=== PATIENT | male | born 1955 | race Asian ===

== ENCOUNTER 2020-03-07 20:51 | Inpatient (IN) | payer OTHER ==
[~2020-03-07] VITALS: Ht 162.6 cm; Wt 75.5 kg
[2020-03-07] MEDS ORDERED: FLUT16H NASAL (20:57)
[2020-03-07] MEDS ORDERED: LOSA25TA71 PO (20:57)
[2020-03-07] MEDS ORDERED: ATOR10TA84 PO (20:57)
[2020-03-07] MEDS ORDERED: BENZ200C53 PO (20:58)
[2020-03-07 22:20] LABS: BARBITURATE SCREEN, URINE NEGATIVE (NEGATIVE); BENZODIAZEPINES SCREEN,URINE NEGATIVE (NEGATIVE); COCAINE SCREEN,URINE NEGATIVE (NEGATIVE); METHADONE SCREEN, URINE NEGATIVE (NEGATIVE); OPIATE SCREEN,URINE NEGATIVE (NEGATIVE)
[2020-03-07 22:26] LABS: BASOPHILS % (AUTO) 0.3 % (0.0-2.0); EOSINOPHILS % (AUTO) 0 % (1.0-6.0); HEMOGLOBIN 14.6 g/dL (13.5-17.5); LYMPHOCYTES # (AUTO) 0.7 K/uL (1.0-4.8); LYMPHOCYTES % (AUTO) 5.3 % (22.0-44.0); MEAN CORPUSCULAR HEMOGLOBIN 28.1 pg (26.0-34.0); MEAN CORPUSCULAR HGB CONC 31.8 G/dL (31.0-37.0); MEAN CORPUSCULAR VOLUME 88 fL (80-100); MONOCYTES # (AUTO) 1.5 K/uL (0.1-1.0); MONOCYTES % (AUTO) 11.6 % (2.0-9.0); NEUTROPHILS # (AUTO) 10.6 K/uL (1.8-7.7); NEUTROPHILS % (AUTO) 82.8 % (40.0-70.0); PLATELET COUNT (AUTO) 103 K/uL (150-450); RED BLOOD CELL COUNT(AUTO) 5.21 MIL/uL (4.50-5.90); RED CELL DISTRIBUTION WIDTH 15.3 % (11.5-14.5)
[2020-03-07 22:35] LABS: ANION GAP 15 mmol/L (8-16); CALCIUM, TOTAL 9.1 mg/dL (8.8-10.5); CARBON DIOXIDE 19 mmol/L (22-29); CHLORIDE 100 mmol/L (98-107); CREATININE 2.11 mg/dL (0.60-1.30); GLOMERULAR FILTR. RATE CALC 32 mL/min (>60); GLUCOSE,RANDOM 136 mg/dL (70-110); POTASSIUM 4.4 mmol/L (3.5-5.1); SODIUM SERUM 134 mmol/L (136-145); UREA NITROGEN, BLOOD 42 mg/dL (7-18)
[2020-03-07 22:38] LABS: AMPHET/METH SCREEN,URINE NEGATIVE (NEGATIVE); CANNABINOID SCREEN,URINE NEGATIVE (NEGATIVE)
[2020-03-07 22:39] LABS: PHENCYCLIDINE SCREEN,URINE NEGATIVE (NEGATIVE)
[2020-03-07 22:41] LABS: ALANINE AMINOTRANSFERASE 759 U/L (12-78); ALBUMIN 3.6 g/dL (3.4-5.0); ALKALINE PHOSPHATASE 247 U/L (46-116); ASPARTATE AMINOTRANSFERASE 516 U/L (15-37); BILIRUBIN,TOTAL 3.4 mg/dL (0.1-1.0); TOTAL PROTEIN, SERUM 6.8 g/dL (6.4-8.2)
[2020-03-07] MEDS ORDERED: LORazepam 1 MG TABLET PO ONE (23:15)
[2020-03-08] MEDS ORDERED: SODIUM CHLORIDE 0.9% 1,000 ML IV ONE (03:30)
[2020-03-08 05:05] LABS: LIPASE 417 U/L (73-393)
[2020-03-08] MEDS ORDERED: 0.9% SODIUM CHLORIDE 10 ML SYRINGE IVP PRN (05:30)
[2020-03-08 08:13] VITALS: BP 110/76
[2020-03-08] MEDS: HEPARIN SODIUM,PORCINE 5,000 UNITS/ML VIAL SQ SCH ×2 (08:22→16:00)
[2020-03-08] MEDS: DOCUSATE SODIUM 100 MG CAPSULE PO SCH ×2 (08:24→20:53)
[2020-03-08 09:47] LABS: ALBUMIN 3.2 g/dL (3.4-5.0); BILIRUBIN,TOTAL 2.7 mg/dL (0.1-1.0); CALCIUM, TOTAL 8.5 mg/dL (8.8-10.5); CREATININE 1.8 mg/dL (0.60-1.30); POTASSIUM 4.3 mmol/L (3.5-5.1); TOTAL PROTEIN, SERUM 6.1 g/dL (6.4-8.2)
[2020-03-08 09:48] LABS: INR 1.6 (0.9-1.1); PROTHROMBIN TIME 16.2 SEC (9.4-11.6)
[2020-03-08 11:24] VITALS: BP 99/74
[2020-03-08 15:42] VITALS: BP 108/84
[2020-03-08 20:35] VITALS: BP 116/69
[2020-03-08] MEDS: ACETAMINOPHEN 325 MG TABLET PO PRN (22:06)
[2020-03-09] MEDS: HEPARIN SODIUM,PORCINE 5,000 UNITS/ML VIAL SQ SCH
[2020-03-09 04:12] VITALS: BP 100/75
[2020-03-09 07:48] VITALS: BP 113/64
[2020-03-09] MEDS: DOCUSATE SODIUM 100 MG CAPSULE PO SCH ×2 (09:00→21:00)
[2020-03-09] MEDS ORDERED: SODIUM CHLORIDE 0.9% 1,000 ML IV ONE (10:00)
[2020-03-09] MEDS: LACTULOSE 20 GM/30 ML SOLUTION UDCUP PO SCH ×2 (12:31→20:52)
[2020-03-09] MEDS: VITAMIN B COMP/VIT C/FOLIC ACID CAPSULE PO SCH (12:32)
[2020-03-09 14:53] VITALS: BP 120/59
[2020-03-09] MEDS: FUROSEMIDE 40 MG/4 ML VIAL IVP SCH ×2 (16:15→20:52)
[2020-03-09] MEDS: CARVEDILOL 3.125 MG TABLET PO SCH ×2 (16:15→20:52)
[2020-03-09 20:20] VITALS: BP 118/74
[2020-03-09] MEDS: ACETAMINOPHEN 325 MG TABLET PO PRN (21:15)
[2020-03-10 08:25] LABS: HEMATOCRIT 44.9 % (41-53); HEMOGLOBIN 14.5 g/dL (13.5-17.5); MEAN CORPUSCULAR HEMOGLOBIN 28.4 pg (26.0-34.0); MEAN CORPUSCULAR HGB CONC 32.3 G/dL (31.0-37.0); MEAN CORPUSCULAR VOLUME 88 fL (80-100); PLATELET COUNT (AUTO) 86 K/uL (150-450); RED CELL DISTRIBUTION WIDTH 15.6 % (11.5-14.5)
[2020-03-10] MEDS: FUROSEMIDE 40 MG/4 ML VIAL IVP SCH (08:30)
[2020-03-10] MEDS: CARVEDILOL 3.125 MG TABLET PO SCH (08:31)
[2020-03-10] MEDS: VITAMIN B COMP/VIT C/FOLIC ACID CAPSULE PO SCH (08:31)
[2020-03-10] MEDS: LACTULOSE 20 GM/30 ML SOLUTION UDCUP PO SCH ×2 (08:31→21:08)
[2020-03-10] MEDS: DOCUSATE SODIUM 100 MG CAPSULE PO SCH ×2 (08:39→21:08)
[2020-03-10 08:47] VITALS: BP 107/62
[2020-03-10 08:51] LABS: ALBUMIN 3.2 g/dL (3.4-5.0); BILIRUBIN,TOTAL 2.8 mg/dL (0.1-1.0); CREATININE 1.61 mg/dL (0.60-1.30); POTASSIUM 3.3 mmol/L (3.5-5.1); TOTAL PROTEIN, SERUM 6.2 g/dL (6.4-8.2)
[2020-03-10] MEDS ORDERED: LISINOPRIL 5 MG TABLET PO SCH (09:00)
[2020-03-10] MEDS ORDERED: POTASSIUM CHLORIDE 10% 40 MEQ/30 ML LIQUID UDCUP PO ONE (09:45)
[2020-03-10 11:44] VITALS: BP 91/69
[2020-03-10 12:17] LABS: BAND NEUTROPHILS % (MANUAL) 1 % (0-5); EOSINOPHILS % (MANUAL) 2 % (1-6); LYMPHOCYTES % (MANUAL) 11 % (22-44); MONOCYTES % (MANUAL) 9 % (2-9); SEGMENTED NEUTROPHILS % 77 % (40-70)
[2020-03-10 15:30] VITALS: BP 109/64
[2020-03-10 16:06] VITALS: BP 121/52
[2020-03-10 18:04] VITALS: BP 104/64
[2020-03-10] MEDS: ACETAMINOPHEN 325 MG TABLET PO PRN (21:08)
[2020-03-10 21:15] VITALS: BP 148/70
[2020-03-11 05:39] VITALS: BP 135/67
[2020-03-11] MEDS: ACETAMINOPHEN 325 MG TABLET PO PRN ×2 (05:46→21:28)
[2020-03-11] MEDS: FUROSEMIDE 40 MG/4 ML VIAL IVP SCH (08:50)
[2020-03-11] MEDS: ASPIRIN 81 MG CHEWABLE TABLET PO SCH (08:51)
[2020-03-11] MEDS: VITAMIN B COMP/VIT C/FOLIC ACID CAPSULE PO SCH (08:51)
[2020-03-11] MEDS: LACTULOSE 20 GM/30 ML SOLUTION UDCUP PO SCH ×3 (08:54→20:00)
[2020-03-11] MEDS: DOCUSATE SODIUM 100 MG CAPSULE PO SCH ×2 (08:54→20:01)
[2020-03-11 08:57] VITALS: BP 97/77
[2020-03-11 11:00] LABS: CALCIUM, TOTAL 8.2 mg/dL (8.8-10.5); CREATININE 1.82 mg/dL (0.60-1.30); POTASSIUM 4.1 mmol/L (3.5-5.1)
[2020-03-11 12:07] VITALS: BP 105/69
[2020-03-11] MEDS: BusPIRone HCL 5 MG TABLET PO SCH ×2 (15:38→20:00)
[2020-03-11 16:00] VITALS: BP 90/68
[2020-03-11 21:13] VITALS: BP 98/72
[2020-03-12] MEDS: ACETAMINOPHEN 325 MG TABLET PO PRN ×2 (01:54→11:41)
[2020-03-12 04:50] VITALS: BP 105/78
[2020-03-12 07:20] VITALS: BP 109/79
[2020-03-12 08:00] LABS: ALBUMIN 3.1 g/dL (3.4-5.0); BILIRUBIN,TOTAL 3.1 mg/dL (0.1-1.0); CALCIUM, TOTAL 8.3 mg/dL (8.8-10.5); CREATININE 1.65 mg/dL (0.60-1.30); POTASSIUM 4.3 mmol/L (3.5-5.1); TOTAL PROTEIN, SERUM 6.3 g/dL (6.4-8.2)
[2020-03-12] MEDS: DOCUSATE SODIUM 100 MG CAPSULE PO SCH ×2 (08:10→22:23)
[2020-03-12] MEDS: BusPIRone HCL 5 MG TABLET PO SCH ×2 (08:10→22:23)
[2020-03-12] MEDS: ASPIRIN 81 MG CHEWABLE TABLET PO SCH (08:10)
[2020-03-12] MEDS: FUROSEMIDE 40 MG/4 ML VIAL IVP SCH (08:10)
[2020-03-12] MEDS: VITAMIN B COMP/VIT C/FOLIC ACID CAPSULE PO SCH (08:10)
[2020-03-12] MEDS: LACTULOSE 20 GM/30 ML SOLUTION UDCUP PO SCH ×2 (08:11→22:23)
[2020-03-12 10:50] VITALS: BP 117/80
[2020-03-12] MEDS ORDERED: FURO40 PO (13:20)
[2020-03-12] MEDS ORDERED: ASPI-728 PO (13:21)
[2020-03-12] MEDS ORDERED: BUSP5TAB20 PO (13:22)
[2020-03-12] MEDS ORDERED: LACT30L PO (13:23)
[2020-03-12 15:19] VITALS: BP 108/61
[2020-03-12 19:47] VITALS: BP 95/59
[2020-03-12 23:54] VITALS: BP 108/78
[2020-03-13 05:16] VITALS: BP 115/71
[2020-03-13 07:50] VITALS: BP 109/78
[2020-03-13] MEDS: FUROSEMIDE 40 MG/4 ML VIAL IVP SCH (08:33)
[2020-03-13] MEDS: VITAMIN B COMP/VIT C/FOLIC ACID CAPSULE PO SCH (08:33)
[2020-03-13] MEDS: DOCUSATE SODIUM 100 MG CAPSULE PO SCH ×2 (08:34→20:59)
[2020-03-13] MEDS: LACTULOSE 20 GM/30 ML SOLUTION UDCUP PO SCH ×2 (08:34→20:59)
[2020-03-13] MEDS: ASPIRIN 81 MG CHEWABLE TABLET PO SCH (08:34)
[2020-03-13] MEDS: BusPIRone HCL 5 MG TABLET PO SCH ×2 (08:34→20:59)
[2020-03-13 11:15] VITALS: BP 130/81
[2020-03-13 15:30] VITALS: BP 102/68
[2020-03-13 19:24] LABS: ALBUMIN 3.2 g/dL (3.4-5.0); BILIRUBIN,TOTAL 2.5 mg/dL (0.1-1.0); CALCIUM, TOTAL 8.4 mg/dL (8.8-10.5); CREATININE 1.77 mg/dL (0.60-1.30); POTASSIUM 4.3 mmol/L (3.5-5.1); TOTAL PROTEIN, SERUM 6.4 g/dL (6.4-8.2)
[2020-03-13 19:59] VITALS: BP 112/81
[2020-03-13] MEDS ORDERED: TEMAZEPAM 15 MG CAPSULE PO SCH (21:00)
[2020-03-13 23:53] VITALS: BP 105/73
[2020-03-14] VITALS (10 sets, daily range): BP systolic 94–117; BP diastolic 70–80
[2020-03-14 06:50] LABS: BASOPHILS % (AUTO) 0.1 % (0.0-2.0); EOSINOPHILS % (AUTO) 1.4 % (1.0-6.0); HEMATOCRIT 44.2 % (41-53); HEMOGLOBIN 14.2 g/dL (13.5-17.5); LYMPHOCYTES % (AUTO) 10.1 % (22.0-44.0); MEAN CORPUSCULAR HEMOGLOBIN 28.4 pg (26.0-34.0); MEAN CORPUSCULAR HGB CONC 32.1 G/dL (31.0-37.0); MEAN CORPUSCULAR VOLUME 89 fL (80-100); MONOCYTES # (AUTO) 1.1 K/uL (0.1-1.0); MONOCYTES % (AUTO) 10.8 % (2.0-9.0); NEUTROPHILS # (AUTO) 7.8 K/uL (1.8-7.7); NEUTROPHILS % (AUTO) 77.6 % (40.0-70.0); RED BLOOD CELL COUNT(AUTO) 4.98 MIL/uL (4.50-5.90); RED CELL DISTRIBUTION WIDTH 16.5 % (11.5-14.5)
[2020-03-14 06:55] LABS: ALBUMIN 3.2 g/dL (3.4-5.0); BILIRUBIN,TOTAL 2.9 mg/dL (0.1-1.0); CALCIUM, TOTAL 8.6 mg/dL (8.8-10.5); CREATININE 1.58 mg/dL (0.60-1.30); POTASSIUM 4.2 mmol/L (3.5-5.1); TOTAL PROTEIN, SERUM 6.3 g/dL (6.4-8.2)
[2020-03-14 07:10] LABS: INR 1.2 (0.9-1.1); PROTHROMBIN TIME 12.5 SEC (9.4-11.6)
[2020-03-14 07:39] LABS: PLATELET COUNT (AUTO) 100 K/uL (150-450)
[2020-03-14] MEDS: LACTULOSE 20 GM/30 ML SOLUTION UDCUP PO SCH ×2 (08:29→20:07)
[2020-03-14] MEDS: FUROSEMIDE 40 MG/4 ML VIAL IVP SCH (08:29)
[2020-03-14] MEDS: VITAMIN B COMP/VIT C/FOLIC ACID CAPSULE PO SCH (08:30)
[2020-03-14] MEDS: BusPIRone HCL 5 MG TABLET PO SCH ×2 (08:30→20:07)
[2020-03-14] MEDS: ASPIRIN 81 MG CHEWABLE TABLET PO SCH (08:31)
[2020-03-14] MEDS: DOCUSATE SODIUM 100 MG CAPSULE PO SCH ×2 (08:38→20:07)
[2020-03-14] MEDS ORDERED: HEPARIN SODIUM 1000 UNITS/NS 1,000 ML ONE (13:45)
[2020-03-14] MEDS ORDERED: LIDOCAINE/PF 1% 30 ML VIAL ONE (13:45)
[2020-03-14] MEDS ORDERED: SODIUM BICARBONATE 50 MEQ/50 ML VIAL ONE (13:45)
[2020-03-14] MEDS ORDERED: IOHEXOL 300 MG/ML 150 ML VIAL ONE (13:45)
[2020-03-14] MEDS ORDERED: FentaNYL CITRATE-PF 100 MCG/2 ML VIAL ONE (14:27)
[2020-03-14] MEDS ORDERED: MIDAZOLAM HCL 2 MG/2 ML VIAL ONE (14:28)
[2020-03-14] MEDS ORDERED: HEPARIN SODIUM 1000 UNITS/NS 1,000 ML IARTER ONE (14:34)
[2020-03-14] MEDS ORDERED: SODIUM CHLORIDE 0.9% 500 ML IV ONE (14:34)
[2020-03-14] MEDS ORDERED: IOHEXOL 300 MG/ML 150 ML VIAL ICOR ONE (14:45)
[2020-03-14] MEDS ORDERED: LIDOCAINE 1% 30 ML/SOD BICARB 8.4% 4 ML SQ ONE (14:45)
[2020-03-14] MEDS ORDERED: FUROSEMIDE 20 MG/2 ML VIAL ONE (15:37)
[2020-03-14] MEDS ORDERED: FUROSEMIDE 40 MG/4 ML VIAL IVP ONE (15:45)
[2020-03-15 00:15] VITALS: BP 102/81
[2020-03-15 04:00] VITALS: BP 110/88
[2020-03-15 07:35] LABS: BASOPHILS % (AUTO) 0.1 % (0.0-2.0); EOSINOPHILS % (AUTO) 0.5 % (1.0-6.0); HEMATOCRIT 43.2 % (41-53); HEMOGLOBIN 14.1 g/dL (13.5-17.5); LYMPHOCYTES # (AUTO) 0.6 K/uL (1.0-4.8); LYMPHOCYTES % (AUTO) 6.8 % (22.0-44.0); MEAN CORPUSCULAR HEMOGLOBIN 29.3 pg (26.0-34.0); MEAN CORPUSCULAR HGB CONC 32.7 G/dL (31.0-37.0); MEAN CORPUSCULAR VOLUME 90 fL (80-100); MONOCYTES # (AUTO) 0.9 K/uL (0.1-1.0); MONOCYTES % (AUTO) 9.7 % (2.0-9.0); NEUTROPHILS # (AUTO) 7.6 K/uL (1.8-7.7); NEUTROPHILS % (AUTO) 82.9 % (40.0-70.0); PLATELET COUNT (AUTO) 108 K/uL (150-450); RED BLOOD CELL COUNT(AUTO) 4.81 MIL/uL (4.50-5.90); RED CELL DISTRIBUTION WIDTH 16.8 % (11.5-14.5)
[2020-03-15 07:51] LABS: ALBUMIN 3.1 g/dL (3.4-5.0); CALCIUM, TOTAL 8.8 mg/dL (8.8-10.5); CREATININE 1.56 mg/dL (0.60-1.30); POTASSIUM 4.1 mmol/L (3.5-5.1); TOTAL PROTEIN, SERUM 6.4 g/dL (6.4-8.2)
[2020-03-15 09:12] VITALS: BP 108/86
[2020-03-15] MEDS: VITAMIN B COMP/VIT C/FOLIC ACID CAPSULE PO SCH (10:09)
[2020-03-15] MEDS: FUROSEMIDE 40 MG/4 ML VIAL IVP SCH (10:09)
[2020-03-15] MEDS: BusPIRone HCL 5 MG TABLET PO SCH ×2 (10:10→21:44)
[2020-03-15] MEDS: DOCUSATE SODIUM 100 MG CAPSULE PO SCH ×2 (10:10→21:45)
[2020-03-15] MEDS: ASPIRIN 81 MG CHEWABLE TABLET PO SCH (10:10)
[2020-03-15] MEDS: LACTULOSE 20 GM/30 ML SOLUTION UDCUP PO SCH ×2 (10:11→21:44)
[2020-03-15 11:51] VITALS: BP 118/90
[2020-03-15 16:23] VITALS: BP 109/81
[2020-03-15] MEDS: ATORVASTATIN CALCIUM 20 MG TABLET PO SCH (16:36)
[2020-03-15 19:51] VITALS: BP 105/74
[2020-03-15] MEDS ORDERED: FUROSEMIDE 40 MG/4 ML VIAL IVP SCH (21:00)
[2020-03-15] MEDS: CARVEDILOL 3.125 MG TABLET PO SCH (21:44)
[2020-03-16] VITALS (7 sets, daily range): BP systolic 95–112; BP diastolic 61–81
[2020-03-16 07:24] LABS: EOSINOPHILS % (AUTO) 0.4 % (1.0-6.0); HEMATOCRIT 44.4 % (41-53); HEMOGLOBIN 14.3 g/dL (13.5-17.5); LYMPHOCYTES # (AUTO) 0.8 K/uL (1.0-4.8); LYMPHOCYTES % (AUTO) 8.6 % (22.0-44.0); MEAN CORPUSCULAR HEMOGLOBIN 28.9 pg (26.0-34.0); MEAN CORPUSCULAR HGB CONC 32.3 G/dL (31.0-37.0); MEAN CORPUSCULAR VOLUME 90 fL (80-100); MONOCYTES # (AUTO) 0.7 K/uL (0.1-1.0); MONOCYTES % (AUTO) 7.6 % (2.0-9.0); NEUTROPHILS # (AUTO) 8.1 K/uL (1.8-7.7); NEUTROPHILS % (AUTO) 83.4 % (40.0-70.0); PLATELET COUNT (AUTO) 117 K/uL (150-450); RED BLOOD CELL COUNT(AUTO) 4.96 MIL/uL (4.50-5.90); RED CELL DISTRIBUTION WIDTH 16.7 % (11.5-14.5)
[2020-03-16 07:51] LABS: BILIRUBIN,TOTAL 3.2 mg/dL (0.1-1.0); CALCIUM, TOTAL 8.9 mg/dL (8.8-10.5); CREATININE 1.82 mg/dL (0.60-1.30); POTASSIUM 4.5 mmol/L (3.5-5.1); TOTAL PROTEIN, SERUM 6.3 g/dL (6.4-8.2)
[2020-03-16] MEDS: CARVEDILOL 3.125 MG TABLET PO SCH ×2 (09:00→20:49)
[2020-03-16] MEDS: ATORVASTATIN CALCIUM 20 MG TABLET PO SCH (11:02)
[2020-03-16] MEDS: ASPIRIN 81 MG CHEWABLE TABLET PO SCH (11:02)
[2020-03-16] MEDS: DOCUSATE SODIUM 100 MG CAPSULE PO SCH ×2 (11:02→20:49)
[2020-03-16] MEDS: VITAMIN B COMP/VIT C/FOLIC ACID CAPSULE PO SCH (11:02)
[2020-03-16] MEDS: BusPIRone HCL 5 MG TABLET PO SCH ×2 (11:02→20:49)
[2020-03-16] MEDS: LACTULOSE 20 GM/30 ML SOLUTION UDCUP PO SCH ×2 (11:03→20:49)
[2020-03-17] VITALS (7 sets, daily range): BP systolic 98–115; BP diastolic 70–84
[2020-03-17] MEDS: ZOLPIDEM TARTRATE 5 MG TABLET PO PRN ×2 (01:57→22:25)
[2020-03-17 07:47] LABS: BASOPHILS % (AUTO) 0.1 % (0.0-2.0); EOSINOPHILS % (AUTO) 0.1 % (1.0-6.0); HEMATOCRIT 44.7 % (41-53); HEMOGLOBIN 14.9 g/dL (13.5-17.5); LYMPHOCYTES # (AUTO) 0.8 K/uL (1.0-4.8); MEAN CORPUSCULAR HEMOGLOBIN 29.7 pg (26.0-34.0); MEAN CORPUSCULAR HGB CONC 33.5 G/dL (31.0-37.0); MEAN CORPUSCULAR VOLUME 89 fL (80-100); MONOCYTES # (AUTO) 0.7 K/uL (0.1-1.0); MONOCYTES % (AUTO) 6.8 % (2.0-9.0); NEUTROPHILS # (AUTO) 8.4 K/uL (1.8-7.7); PLATELET COUNT (AUTO) 126 K/uL (150-450); RED BLOOD CELL COUNT(AUTO) 5.03 MIL/uL (4.50-5.90); RED CELL DISTRIBUTION WIDTH 16.7 % (11.5-14.5)
[2020-03-17 08:09] LABS: BILIRUBIN,TOTAL 4.6 mg/dL (0.1-1.0); CALCIUM, TOTAL 8.8 mg/dL (8.8-10.5); CREATININE 2.03 mg/dL (0.60-1.30); POTASSIUM 4.6 mmol/L (3.5-5.1); TOTAL PROTEIN, SERUM 6.1 g/dL (6.4-8.2)
[2020-03-17] MEDS: CARVEDILOL 3.125 MG TABLET PO SCH ×2 (08:14→20:44)
[2020-03-17] MEDS: ASPIRIN 81 MG CHEWABLE TABLET PO SCH (08:14)
[2020-03-17] MEDS: BusPIRone HCL 5 MG TABLET PO SCH ×2 (08:15→20:44)
[2020-03-17] MEDS: ATORVASTATIN CALCIUM 20 MG TABLET PO SCH (08:15)
[2020-03-17] MEDS: VITAMIN B COMP/VIT C/FOLIC ACID CAPSULE PO SCH (08:15)
[2020-03-17] MEDS: LACTULOSE 20 GM/30 ML SOLUTION UDCUP PO SCH ×2 (08:16→20:47)
[2020-03-17] MEDS: FUROSEMIDE 40 MG/4 ML VIAL IVP SCH (08:17)
[2020-03-17] MEDS: DOCUSATE SODIUM 100 MG CAPSULE PO SCH ×2 (08:28→20:44)
[2020-03-18 03:35] VITALS: BP 105/69
[2020-03-18 07:08] LABS: BASOPHILS % (AUTO) 0.1 % (0.0-2.0); EOSINOPHILS % (AUTO) 0.1 % (1.0-6.0); HEMATOCRIT 45.9 % (41-53); HEMOGLOBIN 14.8 g/dL (13.5-17.5); LYMPHOCYTES # (AUTO) 1.1 K/uL (1.0-4.8); LYMPHOCYTES % (AUTO) 9.8 % (22.0-44.0); MEAN CORPUSCULAR HEMOGLOBIN 28.8 pg (26.0-34.0); MEAN CORPUSCULAR HGB CONC 32.3 G/dL (31.0-37.0); MEAN CORPUSCULAR VOLUME 89 fL (80-100); MONOCYTES % (AUTO) 9.4 % (2.0-9.0); NEUTROPHILS % (AUTO) 80.6 % (40.0-70.0); PLATELET COUNT (AUTO) 116 K/uL (150-450); RED BLOOD CELL COUNT(AUTO) 5.15 MIL/uL (4.50-5.90); RED CELL DISTRIBUTION WIDTH 16.8 % (11.5-14.5)
[2020-03-18 07:35] VITALS: BP 96/77
[2020-03-18 07:47] LABS: BILIRUBIN,TOTAL 4.5 mg/dL (0.1-1.0); CALCIUM, TOTAL 8.7 mg/dL (8.8-10.5); CREATININE 2.28 mg/dL (0.60-1.30); POTASSIUM 4.9 mmol/L (3.5-5.1)
[2020-03-18] MEDS: DOCUSATE SODIUM 100 MG CAPSULE PO SCH (08:23)
[2020-03-18] MEDS: ATORVASTATIN CALCIUM 20 MG TABLET PO SCH (08:23)
[2020-03-18] MEDS: VITAMIN B COMP/VIT C/FOLIC ACID CAPSULE PO SCH (08:23)
[2020-03-18] MEDS: BusPIRone HCL 5 MG TABLET PO SCH (08:23)
[2020-03-18] MEDS: ASPIRIN 81 MG CHEWABLE TABLET PO SCH (08:24)
[2020-03-18] MEDS: LACTULOSE 20 GM/30 ML SOLUTION UDCUP PO SCH (08:24)
[2020-03-18] MEDS: CARVEDILOL 3.125 MG TABLET PO SCH (08:24)
[2020-03-18] MEDS: FUROSEMIDE 40 MG/4 ML VIAL IVP SCH (09:30)
[2020-03-18 11:00] VITALS: BP 99/69
== END 2020-03-18 13:45 | disposition short-term general hospital (02) | DRG 192 ==
LOC: EMS 20:51 → 5S 03-08 03:52
PROVIDERS: ADMIT Internal Medicine; ATTEND Internal Medicine
PROC: 4A023N8 Measurement of Cardiac Sampling and Pressure, Bilateral, Percutaneous Approach (ICD-10-PCS; principal; 2020-03-14)
PROC: B211YZZ Fluoroscopy of Multiple Coronary Arteries using Other Contrast (ICD-10-PCS; 2020-03-14)
DX: I13.0 Hypertensive heart and chronic kidney disease with heart failure and stage 1 through stage 4 chronic kidney disease, or unspecified chronic kidney disease (principal); N17.9 Acute kidney failure, unspecified; D68.9 Coagulation defect, unspecified; D69.6 Thrombocytopenia, unspecified; I25.82 Chronic total occlusion of coronary artery; I08.3 Combined rheumatic disorders of mitral, aortic and tricuspid valves; N18.3 Chronic kidney disease, stage 3 (moderate); I25.10 Atherosclerotic heart disease of native coronary artery without angina pectoris; I50.43 Acute on chronic combined systolic (congestive) and diastolic (congestive) heart failure; K70.9 Alcoholic liver disease, unspecified; I27.20 Pulmonary hypertension, unspecified; I42.0 Dilated cardiomyopathy; F32.9 Major depressive disorder, single episode, unspecified; F41.1 Generalized anxiety disorder; R74.0 Nonspecific elevation of levels of transaminase and lactic acid dehydrogenase [LDH]; E78.5 Hyperlipidemia, unspecified; R74.8 Abnormal levels of other serum enzymes; R45.851 Suicidal ideations; F10.10 Alcohol abuse, uncomplicated; Y90.9 Presence of alcohol in blood, level not specified; N14.1 Nephropathy induced by other drugs, medicaments and biological substances; T50.8X5A Adverse effect of diagnostic agents, initial encounter; Z79.899 Other long term (current) drug therapy; Z20.828 Contact with and (suspected) exposure to other viral communicable diseases
CPT/HCPCS: 76705; 76770; 83036; 85007; 87340; 93306; 93460; G0480; J1644; J1940; J2250; J3010; J3490; J7030; Q9967